=== PATIENT | male | born 1950 | race African-American/Black ===

== ENCOUNTER 2016-10-02 14:40 | Inpatient (IN) | payer BC ==
[~2016-10-02] VITALS: Ht 172.7 cm; Wt 93.0 kg
--- NOTE | ~2016-10-02 | PN ---
Unit #: [id number] #: [id number] Patient: CATHIE RUBIO [id number] [facility] [address] [place] [address] [id number] MR#: [id number] NAME: CATHIE RUBIO. ROOM: P121 Age: 66 Sex: M Admission Date: 10/02/2016 : 1950 Attending Physician: Reinaldo Erwin M.D. Admitting Physician: Reinaldo Erwin M.D. Primary Care Physician: Generic Doctor Not In System [facility] PROGRESS NOTES DATE 10/05/2016 DISCUSSION Cathie is a 66-year-old male, seen on 10/05/2016. The patient interviewed, chart reviewed, and obtained information from the nursing staff. The patient was compliant and cooperative. Mood was labile. The patient reports still having problem with the anxiety, trouble sleeping, withdrawn, isolative. REVIEW OF SYSTEMS Complete review of systems unremarkable. MENTAL STATUS EXAMINATION General appearance: Patient dressed casually. Attention span and concentration, fair. Oriented in time, place, and person. Mood and affect, labile. Speech, monotone. Thought process, concrete. The patient denied any thoughts of harming self or others. Recent and remote memory, poor. Insight and judgment, poor. DIAGNOSIS Major depressive disorder, recurrent. ASSESSMENT/PLAN Advised to continue with the current medication and therapeutic protocol, and if needed consider further adjustment of medication. Dictated by... Dayan Ceron/flip TD: 10/07/2016 07:50 JOB #: [id number] Unit #: [id number] #: [id number] Patient: CATHIE RUBIO [facility] PROGRESS NOTES Page 1 of 1 X Reinaldo Erwin MD PROGRESS NOTE
--- NOTE | ~2016-10-02 | PA ---
Unit #: [id number] #: [id number] Patient: CATHIE RUBIO [id number] [facility] [address] [place] [address] [id number] MR#: [id number] NAME: CATHIE RUBIO ROOM: P251 Age: 66 Sex: M Admission Date: 10/02/2016 : 1950 Date of Assessment: 10/03/2016 Attending Physician: Reinaldo Erwin M.D. Admitting Physician: Reinaldo Erwin M.D. Primary Care Physician: Generic Doctor Not In System PSYCHIATRIC ASSESSMENT INFORMANT The patient reliability, fair; chart reliability, good. CHIEF COMPLAINT Depression and suicidal ideation. HISTORY OF PRESENT ILLNESS Mr. Cathie Rubio is a 66-year-old male, presented with the above-mentioned complaint. The patient reported he had the rock bottom. The patient has a history of previous treatment through outpatient psychiatry Dr. Alex, inpatient 2013, 2015 for suicidal ideation and depression. The patient reports compliant with medication. The patient reported increase in depression and anxiety as well as stress issue with his . The patient reported receiving marital therapy. The patient reported that Dr. Alex recommended inpatient treatment as the patient was having thoughts of suicide. The patient reports that he denied any intent or plan, but having those thoughts feeling of hopelessness and worthlessness. Denied any psychotic symptom or any homicidal ideation. Denied any use of any drugs or alcohol. Needing inpatient admission at this time for psychiatric stabilization. PAST PSYCHIATRIC HISTORY Remarkable for history of [facility], 2015 for depression and suicidal ideation. History of outpatient treatment with Dr. Alex in outpatient clinic. FAMILY HISTORY AND SOCIAL HISTORY The patient's family history is unknown at this time, but has a good support system. No history of any abuse. No history of any legal problems. MEDICAL HISTORY Remarkable for history of hypertension, type 2 diabetes, glaucoma, history of [place] in 2009, history of prostate cancer with radical prostatectomy in 2009, cardiac stent placement in 2009, cataract surgery in 2014. ALLERGIES No known drug allergies. Musculoskeletal; muscle strength and tone, no atrophy or abnormal movement. Gait normal. MEDICATION HISTORY The patient is currently on Desyrel 50 mg at bedtime, Cymbalta 60 mg Unit #: [id number] #: [id number] Patient: CATHIE RUBIO daily, Toprol-XL 200 mg daily, Plavix 75 mg daily, Zestril 40 mg daily, Accu-Cheks, Amaryl 2 mg in the morning, Ambien 5 mg p.r.n., Lipitor 80 mg daily, Xanax 0.25 mg t.i.d., Lexapro 20 mg daily, Neurontin 600 mg t.i.d., and Pepcid 20 mg b.i.d. ALLERGIES No known drug allergies. SUBSTANCE ABUSE HISTORY None. REVIEW OF SYSTEMS HEENT: Eyes, clear. Ears, nose, mouth, and throat; clear. CARDIOVASCULAR: Unremarkable. RESPIRATORY: Unremarkable. GI: Unremarkable. : Unremarkable. SKIN: Unremarkable. LYMPH NODE: Unremarkable. NEUROLOGIC: Unremarkable. ENDOCRINE: Unremarkable. HEMATOLOGIC: Unremarkable. ALLERGIC/IMMUNOLOGIC: Unremarkable. MUSCULOSKELETAL: Muscle strength and tone, no atrophy or abnormal movement. Gait normal. MENTAL STATUS EXAMINATION VITAL SIGNS: Temperature 98.1, pulse 49, respirations 16, blood pressure 180/89, height 5 feet 8 inches, and weight 205 pounds. GENERAL APPEARANCE: The patient dressed casually. The patient did not show any facial deformity. MUSCULOSKELETAL: Please see above. PSYCHIATRIC EXAMINATION Description of speech; regular rate, normal volume, normal articulation, and spontaneous. Description of thought process, goal directed. Description of association, intact. Description of abnormal psychotic thinking; the patient denied any hallucination, delusions, but mood lability, sad and depressed, suicidal ideation. Description of the patient's judgment, concerning everyday activity, poor. Social situation, poor. Concerning psychiatric condition, poor. Complete mental status examination; oriented in time, place, and person. Recent and remote memory, fair. Attention span and concentration, fair. Language, able to name object and repeat phrases. Fund of knowledge, aware of current event and passive vocabulary intact. Mood and affect, sad and dysphoric. Insight and judgment, fair to poor. ASSETS AND LIABILITIES Assets; the patient is articulate and able to take care of his ADL. Liability; history of depression and suicidal ideation. ADMITTING DIAGNOSES Psychiatric: Major depressive disorder, recurrent, severe, F33.2. Secondary diagnosis: Deferred. Medical diagnosis: Please refer to H and P. Unit #: [id number] #: [id number] Patient: CATHIE RUBIO Stressors: Psychosocial stressors. PSYCHIATRIC PLAN AND TREATMENT GOAL AND DISCHARGE PLAN 1. Advised to admit the patient on the inpatient unit. Provide safe, supportive, and structured environment. 2. Ordered labs; CBC, CMP, UA, and UDS. 3. Precaution for self-harm and VTS monitoring. 4. Advised to resume home medication if needed consider further adjustment of medication. The patient to attend all the programing on the inpatient unit. Treatment goal to attain euthymic mood, gain insight into his problem, and learn coping skills. DISCHARGE PLAN Plan to stabilize the patient and consider followup in IOP level of care. ESTIMATED LENGTH OF STAY 5 days. Dictated by... Reinaldo Erwin M.D. ZAIRA/shira TD: 10/03/2016 20:32 JOB #: [id number] PSYCHIATRIC ASSESSMENT Page 1 of 1 X Reinaldo Erwin MD X PSYCHIATRIC ASSESSMENT
--- NOTE | ~2016-10-02 | DS ---
Unit #: [id number] #: [id number] Patient: CATHIE RUBIO [id number] [place] [address] [id number] MR#: [id number] NAME: CATHIE RUBIO. ROOM: P121 Age: 66 Sex: M Admission Date: 10/02/2016 : 1950 Discharge Date: 10/07/2016 Attending Physician: Reinaldo Erwin M.D. Primary Care Physician: Generic Doctor Not In System DISCHARGE SUMMARY REASON FOR ADMISSION Depression and suicidal ideation. DIAGNOSTIC STUDIES LABORATORY RESULTS: Urine drug screen positive for benzodiazepine. HOSPITAL COURSE The patient was admitted to inpatient unit on 10/02/2016 and discharged on 10/07/2016. The patient was treated on the inpatient unit with group therapy, individual therapy, medication management. The patient was responsive to treatment. Subsequently, the patient was discharged with a plan to follow up in outpatient program. DISCHARGE MEDICATIONS Vistaril 25 mg t.i.d. for anxiety, Desyrel 25 mg t.i.d. for anxiety. The patient to continue with Xanax 0.25 mg t.i.d. p.r.n. for anxiety, Zestril 40 mg daily for hypertension, Lipitor 80 mg daily for high cholesterol, Lexapro 20 mg daily for depression, Pepcid 20 mg b.i.d. for reflux, Plavix 75 mg daily, blood thinner, Toprol-XL 200 mg daily for hypertension, Cymbalta 60 mg daily for hypertension, Neurontin 600 mg t.i.d. for anxiety, and Ambien 5 mg at bedtime for sleep. DISCHARGE DIAGNOSES Psychiatric: Major depressive disorder, recurrent, severe, F33.2. Secondary diagnosis: Deferred. Medical diagnosis: Hypertension, type 2 diabetes, glaucoma, history of myocardial infarction in 04/2009, history of prostate cancer with radical prostatectomy in 2009. Stressors: Psychosocial stressors. DISCHARGE INSTRUCTIONS The patient to follow up in outpatient clinic as per psychosocial rehabilitation counselor. CONDITION ON DISCHARGE The patient was pleasant and cooperative. Denied any psychotic symptom or any suicidal ideation. PROGNOSIS Guarded. Unit #: [id number] #: [id number] Patient: CATHIE RUIBO DIET AND ACTIVITY As tolerated. Dictated by... Reinaldo Erwin M.D. SZC/shira TD: 10/07/2016 18:40 JOB #: [id number] DISCHARGE SUMMARY Page 1 of 1 X Reinaldo Erwin MD DISCHARGE SUMMARY
--- NOTE | ~2016-10-02 | PN ---
Unit #: [id number] #: [id number] Patient: CATHIE RUBIO [id number] [facility] [address] [place] [address] [id number] I MR#: [id number] NAME: CATHIE RUBIO. ROOM: P121 Age: 66 Sex: M Admission Date: 10/02/2016 : 1950 Attending Physician: Reinaldo Erwin M.D. Admitting Physician: Dayan Ceron PROGRESS NOTES DATE OF SERVICE: 10/04/2016 DISCUSSION Mr. Lambert is a 66-year-old male, seen on 10/04/2016. The patient interviewed, chart reviewed, and obtained information from nursing staff. The patient continues to report feeling sad, depressed, anxious, withdrawn, isolative, guarded, passive SI. Complete review of systems unremarkable. MENTAL STATUS EXAMINATION General appearance, the patient dressed casually. Attention span and concentration, fair. Oriented in time, place, and person. Mood and affect, sad and dysphoric. Speech, monotone. Thought process, concrete. The patient reported passive SI, but cooperative on the unit, withdrawn, isolative. Recent and remote memory, poor. Insight and judgment, poor. DIAGNOSES Major depressive disorder, recurrent. ASSESSMENT AND PLAN Advised to continue with current medication and therapeutic protocol. If needed, consider further adjustment of medication. Dictated by... Dayan Ceron/shira TD: 10/06/2016 22:48 JOB #: [id number] [facility] PROGRESS NOTES Page 1 of 1 X Reinaldo Erwin MD PROGRESS NOTE
--- NOTE | ~2016-10-02 | PN ---
Unit #: [id number] #: [id number] Patient: CATHIE RUBIO [id number] [facility] [address] [place] [address] [id number] I MR#: [id number] NAME: CATHIE RUBIO. ROOM: P251 Age: 66 Sex: M Admission Date: 10/02/2016 : 1950 Attending Physician: Reinaldo Erwin M.D. Admitting Physician: Reinaldo Erwin M.D. Primary Care Physician: Generic Doctor Not In System [facility] PROGRESS NOTES DATE 10/03/2016 DISCUSSION Cathie Rubio is a 66-year-old male seen on 10/03/2016. Patient interviewed. Chart reviewed. Obtained information from nursing staff. Patient continues to be sad, dysphoric, anxious, adjusting fairly well to unit rules. Patient's CMP was unremarkable. Patient's CBC unremarkable. Complete review of system unremarkable. MENTAL STATUS EXAMINATION General appearance, patient dressed casually. Attention span, concentration fair. Oriented in time, place and person. Mood and affect labile, sad, depressed. Speech rapid in rate. Thought process circumstantial. Patient denied any thoughts of harming others but having passive SI, hopelessness, worthlessness, anxiety. Recent and remote memory poor. Insight and judgement poor. DIAGNOSIS Major depressive disorder, recurrent, severe, F33.2. ASSESSMENT/PLAN Recommending at this time to add Vistaril 25 mg t.i.d. Advised to lower the dosage of Cymbalta to 60 mg. Continue with the Lexapro 20 mg daily. We will also get a medical consultation to review patient's medication for his medical problem as patient's blood pressure is low and patient's seems to be on too many medications for blood pressure, to review his medication. Also, ordered Desyrel 50 mg at bedtime for sleep. Patient to attend all the programming. Continue with the inpatient programming at this time. Dictated by... Reinaldo Erwin M.D. ZAIRA/aiden TD: 10/04/2016 16:44 JOB #: [id number] Unit #: [id number] #: [id number] Patient: CATHIE RUBIO PROGRESS NOTES Page 1 of 1 X Reinaldo Erwin MD PROGRESS NOTE
--- NOTE | ~2016-10-02 | PN ---
Unit #: [id number] #: [id number] Patient: CATHIE RUBIO [id number] [facility] [address] [place] [address] [id number] MR#: [id number] NAME: CATHIE RUBIO. ROOM: P121 Age: 66 Sex: M Admission Date: 10/02/2016 : 1950 Attending Physician: Reinaldo Erwin M.D. Admitting Physician: Reinaldo Erwin M.D. Primary Care Physician: Generic Doctor Not In System [facility] PROGRESS NOTES DATE 10/06/2016 DISCUSSION Cathie Rubio is a 66-year-old female, seen on 10/06/2016. The patient interviewed, chart reviewed, and obtained information from the nursing staff. The patient tolerating medication fairly well, making progress. Vital signs stable, 98.2, 66, 16, and 167/69. REVIEW OF SYSTEMS Complete review of systems unremarkable. MENTAL STATUS EXAMINATION General appearance: Patient dressed casually. Attention span and concentration, fair. Oriented in time, place, and person. Mood and affect, brighter. Speech, regular rate. Thought process, goal-directed. The patient denied any thoughts of harming self or others, denied any psychotic symptoms, reports making progress. Recent and remote memory, poor, seclusive, isolative. Insight and judgment, slightly impaired. DIAGNOSIS Major depressive disorder, recurrent, severe. ASSESSMENT/PLAN Advised to continue with the current medication and therapeutic protocol, and if needed consider further adjustment of medication. Dictated by... Dayan Ceron/flip TD: 10/08/2016 06:05 JOB #: [id number] Unit #: [id number] #: [id number] Patient: CATHIE RUBIO [facility] PROGRESS NOTES Page 1 of 1 X Reinaldo Erwin MD X PROGRESS NOTE
--- NOTE | ~2016-10-02 | HP ---
Unit #: [id number] #: [id number] Patient: CATHIE RUBIO [id number] [place] [address] [id number] MR#: [id number] NAME: CATHIE RUBIO. ROOM: [facility] Age: 66 Sex: M Admission Date: 10/02/2016 : 1950 Attending Physician: Reinaldo Erwin M.D. Admitting Physician: Reinaldo Erwin M.D. Primary Care Physician: Generic Doctor Not In System HISTORY AND PHYSICAL HISTORY OF PRESENT ILLNESS Cathie is a 66-year-old male admitted on 10/02/[address] [place] [address] for depression and anxiety. PAST MEDICAL HISTORY 1. Hypertension. 2. Type 2 diabetes. 3. Glaucoma. 4. History of [place] in 2009. 5. History of prostate cancer with a radical prostatectomy in 2009. PAST SURGICAL HISTORY 1. Cardiac stent placement in 2009. 2. Radical prostatectomy in 2009. 3. Cataract surgery in 2014. ALLERGIES No known drug allergies. SOCIAL HISTORY Denies tobacco or illegal drug use. Does report occasional social alcohol use. He is currently and living with his sister. FAMILY HISTORY Noncontributory. REVIEW OF SYSTEMS CONSTITUTIONAL: No fever or chills. HEENT: Denies any sore throat, ear pain or runny nose. CARDIOVASCULAR: Denies chest pain, irregular heart rhythm or palpitations. CHEST: Denies shortness of breath or cough. No hemoptysis. GASTROINTESTINAL: Denies nausea, vomiting, diarrhea or chronic constipation. ENDOCRINE: Denies history of increased thirst or urination. No recent significant weight loss or gain. GENITOURINARY: Denies dysuria, frequency, or hematuria. SKIN: Denies any rashes. HEMATOLOGIC: Denies history of increased bleeding or bruising. MUSCULOSKELETAL: Denies any hot, swollen joints. No generalized muscle pain. NEUROLOGIC: Denies problems with vision or speech. No frequent, severe headaches. No numbness, tingling or weakness in any extremities. Denies loss of bladder or bowel control. Unit #: [id number] #: [id number] Patient: CATHIE RUBIO CURRENT MEDICATIONS Please see extensive medication reconciliation form in chart. PHYSICAL EXAMINATION GENERAL: Alert, oriented, in no acute distress. VITAL SIGNS: Blood pressure 160/80, heart rate 65, respirations 16, temperature 99.0. SKIN: Warm and dry without rash or lesion. HEENT: Normocephalic. TMs not viewed. Oral and nasal passages clear. Conjunctivae clear. PERRLA. EOMs intact. NECK: Supple without lymphadenopathy or thyromegaly. HEART: Regular rate and rhythm without murmur. LUNGS: Clear. ABDOMEN: Soft, nontender, without masses or hepatosplenomegaly. : Not done. EXTREMITIES: No evidence of cyanosis, clubbing or edema. Moves all without focal deficit. NEUROLOGICAL: Grossly within normal limits. Cranial Nerves: II: Visual ash are intact. III, IV AND : Extraocular movements are intact. Pupils are equal, round and reactive to light. V: Facial sensation is grossly normal. VII: Facial movements and expression are normal. VIII: Auditory acuity grossly intact. IX, X: Uvula is midline. Phonation is normal. XI: Patient shrugs shoulders and turns head normally. XII: Tongue protrudes in the midline. Sensory and Motor Function: Sensory and motor sensation is grossly normal. Motor: moves all extremities well. Coordination: Gait is normal. Deep Tendon Reflexes: Intact. IMPRESSION 1. Psychiatric admission. 2. Hypertension. 3. Type 2 diabetes. 4. Glaucoma. 5. History of prostate cancer. 6. History of an [place]. RECOMMENDATIONS PSYCHIATRIC: Per psychiatrist. MEDICAL: No contraindication to participate in facility's activities. MEDICAL PROGNOSIS Good. MEDICAL CONDITION Stable. Dictated by... Zo Roy/aiden Unit #: [id number] #: [id number] Patient: CATHIE RUBIO TD: 10/02/2016 20:14 JOB #: [id number] HISTORY AND PHYSICAL Page 1 of 1 X ADELITA ZULUAGA APRN HISTORY AND PHYSICAL
--- NOTE | ~2016-10-02 | PN ---
Unit #: [id number] #: [id number] Patient: CATHIE RUBIO [id number] [facility] [address] [place] [address] [id number] MR#: [id number] NAME: CATHIE RUBIO. ROOM: P121 Age: 66 Sex: M Admission Date: 10/02/2016 : 1950 Attending Physician: Reinaldo Erwin M.D. Admitting Physician: Reinaldo Erwin M.D. Primary Care Physician: Generic Doctor Not In System [facility] PROGRESS NOTES DATE 10/04/2016 DISCUSSION Ms. Lambert is a 66-year-old male seen on 10/04/2016. The patient interviewed, chart reviewed. Obtained information from nursing staff. The patient continues to report feeling sad, depressed, anxious, withdrawn, isolative, guarded, passive SI. Complete review of systems unremarkable. MENTAL STATUS EXAMINATION General appearance, the patient dressed casually. Attention span and concentration fair. Oriented to time, place and person. Mood and affect sad, dysphoric. Speech monotone. Thought process concrete. The patient reported passive suicidal ideation but cooperative on the unit. Withdrawn, isolative. Recent and remote memory poor. Insight and judgement poor. DIAGNOSES Major depressive disorder recurrent. ASSESSMENT/PLAN Advise to continue with current medication and therapeutic protocol. If needed consider further adjustment of medication. Dictated by... Dayan Ceron/ailyn TD: 10/06/2016 23:32 JOB #: [id number] [facility] PROGRESS NOTES Page 1 of 1 X Reinaldo Erwin MD PROGRESS NOTE
--- NOTE | ~2016-10-02 | CO ---
Unit #: [id number] #: [id number] Patient: CATHIE RUBIO [id number] [place] [address] [id number] MR#: [id number] NAME: CATHIE RUBIO ROOM: P251 Age: 66 Sex: M Admission Date: 10/02/2016 : 1950 Attending Physician: Reinaldo rEwin M.D. Primary Care Physician: Generic Doctor Not In System Consultation Date: 10/03/2016 CONSULTATION REPORT HISTORY OF PRESENT ILLNESS Cathie has a history of coronary artery disease with stent placements and PR in the past. He is currently taking metoprolol 200 mg ER daily. His heart rate this morning was 49. This medication was held and he is being seen for parameters. He also is on glimepiride for diabetes. Blood sugar this morning was 61. He was treated with juice and crackers and his blood sugar came up to 106. He has no complaints. PHYSICAL EXAMINATION CARDIAC: Regular rate and rhythm. No murmurs, gallops, or rubs. RESPIRATORY: Clear to auscultation bilaterally. ASSESSMENT AND PLAN 1. Type 2 diabetes. Please check a fasting blood sugar on 10/04/2016. If blood sugar is less than 90, we will discontinue all future Accu-Cheks unless needed. 2. Coronary artery disease. Please continue metoprolol 200 mg ER p.o. daily. Please hold for systolic blood pressure less than 100 or heart rate less than 60. Dictated by... Zo Roy/shira TD: 10/04/2016 00:40 JOB #: [id number] CONSULTATION REPORT Page 1 of 1 X ADELITA ZULUAGA APRN CONSULTATION REPORT
[2016-10-03 09:37] LABS: BASOPHIL% 0.5 % (0-2.5); EOSINOPHIL# 0.2 X10e3 (0-0.7); EOSINOPHIL% 2.7 % (0.0-7.0); HEMATOCRIT 44.9 % (38.0-50.0); HEMOGLOBIN 14.6 gm/dL (13.0-16.0); LYMPHOCYTE# 2.1 X10e3 (1.0-3.5); LYMPHOCYTE% 27.8 % (17.0-45.0); MEAN CELL VOLUME 83.8 FL (83-96); MEAN CORPUSCULAR HEMOGLOBIN 27.3 PG (28-34); MEAN CORPUSCULAR HGB CONC 32.6 g/dL (30-36); MEAN PLATELET VOLUME 9.2 FL (6.5-11.5); MONOCYTE# 0.7 X10e3 (0-1.0); MONOCYTE% 8.9 % (3.0-12.0); NEUTROPHIL# 4.6 X10e3 (1.5-7.1); NEUTROPHIL% 60.1 % (40-75); PLATELET COUNT 182 X10e3 (140-420); RED BLOOD COUNT 5.37 X10e (3.90-5.60); RED CELL DISTRIBUTION WIDTH 14.2 % (11.0-15.5); WHITE BLOOD COUNT 7.6 X10e3 (4.0-10.5)
[2016-10-03 09:52] LABS: DIFF IND NO
[2016-10-03 10:06] LABS: ALBUMIN SERUM 4.3 g/dL (3.5-5.0); BILIRUBIN,TOTAL 0.5 mg/dL (0.2-2.0); CALCIUM SERUM 9.7 mg/dL (8.4-10.2); GLOM FILT RATE Estimated 91.8 mL/min (>60); PROTEIN TOTAL SERUM 7.2 g/dL (6.0-8.3)
[2016-10-04 09:39] LABS: URINE APPEARANCE CLEAR; URINE BILIRUBIN NEG (NEG); URINE BLOOD NEG (NEG); URINE COLOR YELLOW; URINE GLUCOSE NEG (NEG); URINE KETONE NEG (NEG); URINE LEUKOCYTE ESTERASE NEG (NEG); URINE NITRATE NEG (NEG); URINE PH 5.5 (5-8); URINE PROTEIN NEG (NEG); URINE SPECIFIC GRAVITY 1.017 (1.003-1.035)
[2016-10-04 11:37] LABS: AMPHETAMINE NEG (NEG); BARBITURATES NEG (NEG); BENZODIAZEPINES POS (NEG); COCAINE NEG (NEG); MARIJUANA NEG (NEG); OPIATES NEG (NEG); TRICYCLIC ANTIDEPRESSANTS NEG (NEG); U METHADONE NEG (NEG)
== END 2016-10-07 11:54 | disposition home or self-care (01) | DRG 885 ==
LOC: P2L 16:26 → P1S 10-05 22:51
PROVIDERS: Psychiatry & Neurology Psychiatry
DX: F33.2 Major depressive disorder, recurrent severe without psychotic features (principal); R45.851 Suicidal ideations; E11.9 Type 2 diabetes mellitus without complications; I10 Essential (primary) hypertension; H40.9 Unspecified glaucoma; I25.2 Old myocardial infarction; Z85.46 Personal history of malignant neoplasm of prostate; I25.10 Atherosclerotic heart disease of native coronary artery without angina pectoris
CPT/HCPCS: 80053; 80307; 81003; 82947; 85025